=== PATIENT | male | born 1985 ===

== ENCOUNTER 2024-12-16 21:43 | Emergency (ER) | payer OTHER, SELFPAY ==
[2024-12-16 21:49] VITALS: BP 110/70
[2024-12-16 23:11] VITALS: BP 116/86
--- NOTE | 2024-12-16 23:11 | ED.GENMED ---
History of Present Illness
General
Chief Complaint: Chest Pain
Time Seen by Provider: 12/16/24 22:00
History of Present Illness
History of Present Illness:
39-year-old male without significant past medical history presenting for left-sided chest pain. Patient reports that he woke up from a nap at 8 PM started to have left-sided mid axillary chest pain. Reports that the pain is worse with any type of
movement or deep inspiration. Denies any known injury. Denies any history of cardiac disease. Denies difficulty breathing. He took some Ultram prior to arrival. Denies abdominal pain or GI symptoms. Denies additional acute medical complaints
Phy Exam
Physical Exam
Physical Exam:
General: Well-appearing, no clinical signs of dehydration, nontoxic and in no acute distress
HEENT: protecting airway
Neck: appears supple
CV: Normal heart rate, regular rhythm
Resp: No accessory muscle use, no increased work of breathing, lungs clear to auscultation bilaterally. Reproducible tenderness to the mid axillary region of the left chest wall. No crepitus. No overlying skin changes
Abd: No distention
Extremities: No deformities, no swelling
Neuro: alert, no focal neurologic deficit
: deferred
Rectal: deferred
Psych: Normal affect
Skin: Intact
Scores
Heart Score for Chest Pain Patients
STEMI patient?: No
History: Slightly or Non-Suspicious
ECG: Normal
Age: </= 45 years
Risk Factors: No Risk Factors
Troponin: </= Normal Limit
Heart Score for Chest Pain Patients: 0
Heart Score Risk: 2.5% MACE over next 6 weeks
Course
Orders/Labs/Results
Orders:
Orders
12/16/24 21:53
ECG [Electrocardiogram (*1)] Urgent
Reason for Study: Chest Pain
Cardiology Consult: Unknown
EKG- Treatment ONCE
12/16/24 21:56
Electrocardiogram (*1) Urgent
Reason for Study: Other
Other Reason for Exam: Respiratory Distress
Cardiac Monitoring- Treatment ONCE
EKG- Treatment ONCE
IV Insert/Care/Rem.- Treatment PRN
CR Chest - 2 Views Urgent
Comment:
Reason For Exam: respiratory distress
O2 Therapy [RESP] Urgent
Titrate/Wean O2 to maintain O2 sat greater than (%): 93
Special Instructions: TO MAINTAIN CONTINUOUS O2 SATS >/= 93%
Pulse Ox/cont/shift [RESP] Urgent
Quantity: 1
Special Instructions: continuous pulse ox
12/16/24 23:10
Complete Blood Count/With Diff Urgent
Comprehensive Metabolic Panel Urgent
NT-proBNP Urgent
Troponin I Urgent
12/17/24 00:23
Ketorolac [Toradol] 15 mg IV NOW STA
12/17/24 00:27
Cyclobenzaprine HCl [Flexeril] 10 mg PO NOW STA
Lidocaine [Lidocaine 4% Patch] 1 patch TOPICAL ONCE ONE
Apply Lidocaine patch(s) to:: L-mid axillary
Abnormal Lab Results
12/16/24
23:10
WBC 16.6 H 10^3/uL
(4.8-10.8)
Abs Immat Gran (auto) 0.1 H 10^3/uL
(0-0.05)
Absolute Neuts (auto) 14.5 H 10^3/uL
(1.4-6.5)
Absolute Monos (auto) 0.9 H 10^3/uL
(0.1-0.6)
Neutrophils % 87.3 H %
(42.2-75.2)
Lymphocytes % 6.9 L %
(20.5-51.1)
Sodium 133 L mmol/L
(135-145)
Chloride 96 L mmol/L
(98-107)
Glucose 105 H mg/dl
(70-99)
AST 69 H U/L
(17-59)
ALT 61 H U/L
(0-50)
12/16/24 23:10
12/16/24 23:10
Vital Signs
Initial and Last Documented VS:
Initial Vital Signs
Temp Pulse Resp BP Pulse Ox
97.7 F 77 20 110/70 100
12/16/24 21:49 12/16/24 21:49 12/16/24 21:49 12/16/24 21:49 12/16/24 21:49
Last Documented Vital Signs
Temp Pulse Resp BP Pulse Ox
97.7 F 83 19 103/68 100
12/16/24 21:49 12/17/24 00:15 12/17/24 00:15 12/17/24 00:00 12/17/24 00:15
MDM/Problems Addressed
MDM/Problems Addressed:
39-year-old male without significant past medical history presenting for left-sided chest pain which started after he took a nap. Vital signs on arrival are normal.
On exam patient is resting comfortably, no acute distress. EKG obtained on patient's arrival, nonischemic, benign early repol without ischemic abnormality. Patient without any cardiac risk factors. Overall low suspicion for ACS. Pain is
reproducible, worse with movement, overall suspect musculoskeletal quality to pain. Patient is PERC negative without concern for PE. Will obtain laboratory analysis and chest x-ray imaging.
00:20 - Patient with negative troponin. Chest x-ray without acute cardiopulmonary disease. Patient does have a leukocytosis, however afebrile without infectious symptoms. Without present concern for systemic infection. Patient remained stable on
reassessment, low risk by heart score. Feel stable for discharge with continued outpatient supportive therapy. Return precautions discussed with patient verbalized understanding
*EKG
Interpreted by ED Provider?: Yes
EKG Intrepretation Date: 12/17/24
EKG Intrepretation Time: 00:12
Interpretation: normal
Comparison EKG: no comparison EKG present
Heart Rate: 72
Rate: normal
Rhythm: sinus
[place]: normal axis
Interval: normal interval
QRS Pattern: normal QRS
Ischemia: no ischemia
*Critical Care Note
Total Time (30-74mins, 75-104mins- exclusive of procedures): Not Applicable
ED Attending Note
-
Portions of this chart may have been created with voice recognition software.� Occasional wrong word or��sound alike� substitutions may have occurred due to the inherent limitations of voice recognition software.
Discharge Plan
Departure
Patient Disposition: Home (Routine Discharge)
Date of Disposition: 12/17/24
Time of Disposition: 00:28
Patient with high blood pressure during this ER visit?: No
Condition: Good
Discharge Problem:
Intercostal muscle strain
Instructions: Costochondritis (DC)
Prescriptions:
New
ibuprofen 600 mg tablet
600 mg PO Q8H PRN (Reason: Pain) Qty: 20 0RF
cyclobenzaprine 10 mg tablet
10 mg PO BID PRN (Reason: spasm) Qty: 10 0RF
Referrals:
UNKNOWN - PT NOT,INTERVIEWE [Family Provider] -
Stand Alone Forms: Return to Work
Activity Restrictions/Additional Instructions:
You were seen in the emergency department for chest wall pain
You were found to have a normal EKG and laboratory analysis. We suspect that you have muscle strain to your chest wall.
Please follow-up closely with your primary care physician.
Return to the emergency department for any worsening of your symptoms, or any development of chest pain, difficulty breathing, abdominal pain with persistent vomiting and inability to tolerate food or liquid by mouth (concern for dehydration),
weakness, headache or confusion, fever greater than 100.4, or any additional symptoms that are concerning to you.
Thank you for choosing [facility].
Interventions
Interventions:
*Risk Screen - Suicide Last Done: 12/16/24 21:49
*General Assessment Last Done: 12/16/24 22:19
*Neglect/Abuse Screening Last Done: 12/16/24 22:03
ED- Fall Risk Assessment Last Done: 12/17/24 00:49
*ED COVID-19 Vaccine History Last Done: 12/16/24 21:54
*Nursing Disposition Last Done: 12/17/24 00:49
ED- Cardiac Assessment Last Done: 12/16/24 22:18
Discharge Date and Time
Discharge Date/Time: 12/17/24 00:49
Print Language: TAIWANESE
[2024-12-16 23:17] LABS: % Basophils 0.2 % (0-2); % Eosinophils 0.1 % (0-6); % Immature Granulocytes 0.3 % (0-0.5); % Lymphocytes 6.9 % (20.5-51.1); % Monocytes 5.2 % (1.7-9.3); % Neutrophils 87.3 % (42.2-75.2); Absolute Immature Granulocytes 0.1 10^3/uL (0-0.05); Absolute Lymphocytes 1.2 10^3/uL (1.2-3.4); Absolute Monocytes 0.9 10^3/uL (0.1-0.6); Absolute Neutrophils 14.5 10^3/uL (1.4-6.5); Hematocrit 43.1 % (39.0-52.0); Hemoglobin 14.6 g/dL (13.0-18.0); Mean Corp Hgb Conc. 33.9 g/dL (33.0-37.0); Mean Corpuscular Hgb 29.5 pg (27.0-31.0); Mean Corpuscular Volume 87.1 fL (80.0-94.0); Mean Platelet Volume 8.7 fL (7.4-10.4); Nucleated Red Blood Cells % 0 % (-); Platelet Count 340 10^3/uL (130-400); Red Blood Cell Count 4.95 10^6/uL (4.70-6.10); Red Cell Dist. Width 13.4 % (11.5-14.5); White Blood Cell Count 16.6 10^3/uL (4.8-10.8)
[2024-12-16 23:44] LABS: NT-proBNP 106 pg/ml; Troponin I < 0.012 ng/ml
[2024-12-17] VITALS: BP 103/68
[2024-12-17] LABS: ALT (SGPT) 61 U/L (0-50); AST (SGOT) 69 U/L (17-59); Albumin 4.9 g/dl (3.5-5.0); Alkaline Phosphatase 71 U/L (38-126); Blood Urea Nitrogen 11 mg/dl (9-20); Calcium 9.4 mg/dl (8.4-10.2); Carbon Dioxide 24 mmol/L (22-30); Chloride 96 mmol/L (98-107); Glucose 105 mg/dl (70-99); Potassium 4.5 mmol/L (3.5-5.1); Sodium 133 mmol/L (135-145); Total Bilirubin 0.7 mg/dl (0.2-1.3); Total Protein 7.8 g/dl (6.3-8.2); eGFR > 60.00
[2024-12-17] MEDS: TORADOL 15 MG IV (00:32)
[2024-12-17] MEDS: LIDOCAINE 4% PATCH 1 PATCH TOPICAL (00:32)
[2024-12-17] MEDS: FLEXERIL 10 MG PO (00:33)
== END 2024-12-17 00:49 | disposition home or self-care (01) ==
LOC: EMR 21:43
PROVIDERS: EMERGENCY PHYSICIAN Student in an Organized Health Care Education/Training Program
DX: S29.011A Strain of muscle and tendon of front wall of thorax, initial encounter (principal); X58.XXXA Exposure to other specified factors, initial encounter
CPT/HCPCS: 99285; 96374; 71046; 80053; 83880; 84484; 85025; 93005